=== PATIENT | female | born 1955 | race Caucasian/White ===

== ENCOUNTER 2017-06-22 09:41 | Emergency (ER) | payer OTHER ==
[2017-06-22 09:49] VITALS: BP 135/58; BMI 25.6
--- NOTE | 2017-06-22 10:34 | DR.GENAD ---
HPI - PCP Primary Care Physician: ИРИНА - Complaint/Symptoms Chief Complaint Doctors Comments: Patient with history of recurrent UTI presently complaint urinary frequency with out fever. Chief Complaint:: PT C/O LOWER BACK PAIN AND FREQUENT URINATIONS. PT HAS BEEN TAKING AZO FOR THE PAIN. PT STATES SHE HAS A HISTORY OF KIDNEY INFECTIONS. - Source History Provided: Patient - Mode of Arrival Mode of Arrival: Ambulatory - Timing Onset of Chief Complaint: 06/20/17 PMH - PMH Past Medical History: Yes Past Medical History: Dyslipidemia, Headaches, Hypertension, Kidney Stones Past Medical History Comment: KIDNEY INFECTIONS Past Surgical History: Yes Surgical History: Abdominal Surgery, RESIDENT SERVICE COORDINATOR Surgery, Hysterectomy Past Surgical History Comment: HERNIA REPAIR, BLADDER TACH, - Family History History of Family Medical Conditions: Yes Family Medical History: Diabetes Mellitus, Cancer, Coronary Artery Disease - Social History Does any household member use tobacco: No Alcohol Use: None Do you use any recreational Drugs:: No Lives With: Family Lives Where: Home - infectious screening In the last 2 months have you had wt loss of >10#?: NO Have you had fever, night sweats or hemotysis?: No Have you traveled outside the country in the last 6 months?: No Isolation: Standard ROS - Review of Systems Eyes: No Symptoms Reported ENTM: No Symptoms Reported Respiratoy: No Symptoms Reported Cardiovascular: No Symptoms Reported Gastrointestinal/Abdominal: No Symptoms Reported Genitourinary: No Symptoms Reported Neurological: No Symptoms Reported Musculoskeletal: No Symptoms Reported Integumentary: No Symptoms Reported Hematologic/Lymphatic: No Symptoms Reported Endocrine: No Symptoms Reported Psychiatric: No Symptoms Reported All Other Systems: Reviewed and Negative PE - Vital Signs Vitals: Temperature 99.4 F Pulse Rate 83 Respiratory Rate 18 Blood Pressure 135/58 O2 Sat by Pulse Oximetry 96 - General Limitations: No Limitations General Appearance: Alert, In No Apparent Distress - Head Head Exam: Normal Inspection, Atraumatic - Eyes Eye exam: Normal Appearance, PERRL, EOMI - ENT ENT Exam: Normal Exam TM/Canal Exam: Bilateral Normal Nose Exam: Normal Nose Exam Mouth Exam: Normal Inspection Throat Exam: Normal Inspection - Neck Neck Exam: Normal Inspection - Chest Chest Inspection: Normal Inspection - Respiratory Respiratory Exam: Normal Lung Sounds Bilat Respiratory Exam: Bilateral Clear to Auscultation - Cardiovascular Cardiovascular Exam: Regular Rate, Normal Rhythm - Abdominal Exam Abdominal Exam: Normal Inspection, Normal Bowel Sounds Abdominal Tenderness: negative: RUQ, RLQ, LUQ, LLQ, Epigastrium, Suprapubic, Diffuse, Mild, Moderate, Severe, Other - Extremities Extremities Exam: Normal Inspection, Full ROM - Back Back Exam: Normal Inspection - Neurologic Neurological Exam: Alert, Oriented X3, CN II-XII Intact - Psychiatric Psychiatric Exam: Normal Affect - Skin Skin Exam: Warm, Dry, Intact ROR - Labs Reviewed Laboratory Results Reviewed?: Yes (UA: 2+leukocytes) Laboratory: Specimen Type Clean catch urine 06/22/17 10:26 Urine Color Yellow (YELLOW) 06/22/17 10:26 Urine Appearance Clear (CLEAR) 06/22/17 10:26 Urine pH 7.0 (5.0 - 8.0) 06/22/17 10:26 Ur Specific [place] 1.005 (1.000-1.030) 06/22/17 10:26 Urine Protein Negative (NEGATIVE) 06/22/17 10:26 Urine Glucose (UA) Negative (NEGATIVE) 06/22/17 10:26 Urine Ketones Negative (NEGATIVE) 06/22/17 10:26 Urine Occult Blood Negative (NEGATIVE) 06/22/17 10:26 Urine Nitrite Negative (NEGATIVE) 06/22/17 10:26 Urine Bilirubin Negative (NEGATIVE) 06/22/17 10:26 Urine Urobilinogen Normal (NORMAL) 06/22/17 10:26 Ur Leukocyte Esterase 2+ (NEGATIVE) 06/22/17 10:26 Urine RBC Rare /HPF (NEGATIVE) 06/22/17 10:26 Urine WBC 02 - 05 /HPF (NEGATIVE) 06/22/17 10:26 Ur Squamous Epith Cells Rare /HPF (NEGATIVE) 06/22/17 10:26 Amorphous Sediment Trace /HPF (NEGATIVE) 06/22/17 10:26 Urine Bacteria Trace /HPF (NEGATIVE) 06/22/17 10:26 Ur Culture Indicated? No/not indicated 06/22/17 10:26 - Diagnosis Discharge Problem: UTI (urinary tract infection) Qualifiers: Urinary tract infection type: acute cystitis Hematuria presence: without hematuria Qualified Code(s): N30.00 - Acute cystitis without hematuria - Discharge Plan Condition: Stable - Follow ups/Referrals Follow ups/Referrals: CARLOTTA GIFFORD [Primary Care Provider] - 3 days - Instructions
[2017-06-22 10:40] LABS: BILIRUBIN,URINE NEGATIVE (NEGATIVE); BLOOD/HEMOGLOBIN,URINE NEGATIVE (NEGATIVE); GLUCOSE, URINE NEGATIVE (NEGATIVE); KETONES,URINE NEGATIVE (NEGATIVE); LEUKOCYTE ESTERASE ,URINE 2+ (NEGATIVE); NITRITES,URINE NEGATIVE (NEGATIVE); PROTEIN,URINE NEGATIVE (NEGATIVE); UROBILINOGEN,URINE NORMAL (NORMAL)
[2017-06-22 10:44] LABS: APPEARANCE,URINE CLEAR (CLEAR); COLOR,URINE YELLOW (YELLOW)
[2017-06-22 10:58] LABS: AMORPHOUS SEDIMENT,UR TRACE /HPF (NEGATIVE); BACTERIA,URINE TRACE /HPF (NEGATIVE); RBC,URINE RARE /HPF (NEGATIVE); SQUAMOUS EPITHELIAL CELL,UR RARE /HPF (NEGATIVE)
== END 2017-06-22 11:11 | disposition home or self-care (01) ==
LOC: ER 09:41
DX: N30.00 Acute cystitis without hematuria (principal)
CPT/HCPCS: 81001; 99282

== ENCOUNTER → 2017-08-15 | Outpatient (CLI) | payer OTHER ==
--- NOTE | 2017-08-15 16:22 | CT ---
HISTORY: Left flank pain, previous history of renal stones Study: CT abdomen and pelvis without contrast Comparison: None Technique: Multiple axial images of the abdomen and pelvis were obtained from the lung bases to the pubic symphy sis without the administration of IV contrast. Dose reduction techniques including automated exposur e control (AEC) and adjustment of mA and kVwere utilized. Findings: Subsegmental atelectasis and/or scarring are seen within the visualized lungs. The liver, spleen, chambers creas, and adrenals are grossly unremarkable in appearance given limitations of this noncontrast exam . Mildly dilated extrarenal pelves are demonstrated bilaterally. A moderate-size hiatal hernia is not ed. Evaluation of the stomach, small bowel, colon is limited without oral contrast. The appendix is g rossly unremarkable in appearance. Scattered diverticula are seen within the transverse, descending, and sigmoid colon. Numerous punctate densities are seen posteriorly within the pelvis likely represen ting phleboliths. An approximate 3 mm density seen along the posterior left margin of the urinary pipe dder may reflect a phlebolith as well however a distal left ureteral stone at the level of the ureter al vesicle junction cannot entirely be excluded. Recommend clinical correlation and continued follow- up is indicated for further evaluation. The urinary bladder is unremarkable. Degenerative changes of the visualized spine are noted. IMPRESSION: Questionable distal left ureteral stone as noted above. Diverticulosis. Moderate-sized hiatal hernia. Reported By:
== END ==
LOC: RAD 13:51
PROVIDERS: ATTEND Nurse Practitioner
DX: R10.32 Left lower quadrant pain (principal); M54.5 Low back pain; K44.9 Diaphragmatic hernia without obstruction or gangrene
CPT/HCPCS: 74176

== ENCOUNTER → 2017-08-29 | Outpatient (CLI) | payer OTHER ==
[2017-08-29 10:23] LABS: CREATININE 0.53 mg/dL (0.55-1.02)
--- NOTE | 2017-08-29 12:06 | CT ---
HISTORY: Hernia seen on previous exam Study: CT abdomen and pelvis with contrast Comparison: August 15, 2017 Technique: Multiple axial images of the abdomen and pelvis were obtained from the lung bases to the pubic symphy sis with the administration of IV contrast. Dose reduction techniques including automated exposure c ontrol (AEC) and adjustment of mA and kV were utilized. Findings: Subsegmental atelectasis and/or scarring are seen within the visualized lungs. Diffuse decreased atte nuation throughout the liver suggests fatty infiltration. Correlate clinically as other causes of hep atic disease may produce a similar appearance. The spleen, pancreas, adrenals, and kidneys are unrema rkable in appearance. No CT evidence of hydronephrosis is identified. A moderate-size hiatal hernia i s again demonstrated similar to prior exam. Scattered diverticula are again seen within the transvers e, descending, and sigmoid colon. Punctate densities are again seen posteriorly within the pelvis sug gesting phleboliths. The appendix is partially air-filled and otherwise grossly unremarkable. The uri nary bladder is grossly unremarkable. Stool and gas are seen throughout the colon to the level of the rectum. IMPRESSION: Hepatic steatosis. Diverticulosis. Moderate-sized hiatal hernia. Reported By:
== END ==
LOC: RAD 09:59
PROVIDERS: ATTEND Internal Medicine
DX: N20.1 Calculus of ureter (principal); K76.0 Fatty (change of) liver, not elsewhere classified; K57.30 Diverticulosis of large intestine without perforation or abscess without bleeding; K44.9 Diaphragmatic hernia without obstruction or gangrene
CPT/HCPCS: 36415; 74177; 82565; 84520; A4222